=== PATIENT | male | born 1980 | race African-American/Black ===

== ENCOUNTER 2017-01-04 08:42 | Emergency (ER) | payer OTHER ==
[~2017-01-04] VITALS: Ht 170.2 cm; Wt 140.0 kg
[2017-01-04 08:43] VITALS: BP 129/73; PULSE 84; RESP 16; TEMP 98.2; O2SAT 97
[2017-01-04] MEDS ORDERED: MOME17I EACH NARE (09:02)
[2017-01-04] MEDS ORDERED: BENZ100 PO (09:02)
[2017-01-04] MEDS ORDERED: IPRA0.06 EACH NARE (09:02)
[2017-01-04] MEDS ORDERED: AZIT500T2 PO (09:02)
--- NOTE | 2017-01-04 09:03 | PD ---
HPI Chief Complaint: Cold / Flu Symptoms Time Seen by Provider: 09:00 Travel History International Travel<30 days: No Contact w/Intl Traveler<30days: No Traveled to known affect area: No History of Present Illness HPI 36-year-old male presents to emergency Department with complaint of nasal congestion and cough 2 weeks. Denies ear pain, sore throat, shortness of breath, chest tightness, wheezing. Denies fevers. Reports chills at times. Cough is worse at night. It has vomiting, abdominal pain. Has been taking Mucinex for symptom management. Symptoms are mild in severity. No known aggravating factors. No known allergies. Has no other medical complaints. No other modifying factors or associated signs and symptoms. PFSH Social History Tobacco Use: No Allergies-Medications (Allergen,Severity, Reaction): Coded Allergies: No Known Allergies (Unverified , 01/04/17) Reported Meds & Prescriptions Reported Meds & Active Scripts Active Tessalon Perles (Benzonatate) 100 Mg Cap 100 Mg PO TID PRN 3 Days Nasonex Nasal [place] (Mometasone Furoate) 50 Mcg/Act Naspr 2 [place] EACH NARE DAILY PRN Ipratropium Nasal 0.06% [place] 1 [place] EACH NARE TID PRN Azithromycin 500 Mg Tab 500 Mg PO DAILY Review of Systems Except as stated in HPI: all other systems reviewed are Neg Physical Exam Narrative GENERAL: Well-nourished, well-developed lack male patient, in no acute distress ; afebrile, nontoxic-appearing SKIN: Warm and dry. No rash. HEAD: Atraumatic. Normocephalic. EYES: Pupils equal and round. No scleral icterus. No injection or drainage. ENT: Mucosa pink and moist. No erythema or exudates. No uvular edema. No uvular , palatal, or tonsillar deviation. Airway patent. EARS: Bilateral pinnae and external canals appear within normal limits. Bilateral tympanic membranes without erythema, dullness or perforation. NECK: Trachea midline. No lymphadenopathy. CARDIOVASCULAR: Regular rate and rhythm. No murmur appreciated. RESPIRATORY: No accessory muscle use. Clear to auscultation. Breath sounds equal bilaterally. No retractions or tachypnea. GASTROINTESTINAL: Obese. MUSCULOSKELETAL: No obvious deformities. No clubbing. No cyanosis. No edema. NEUROLOGICAL: Awake and alert. Oriented 3. No obvious cranial nerve deficits. Motor grossly within normal limits. Normal speech. Moves all extremities. 5/5 strength to all extremities. PSYCHIATRIC: Appropriate mood and affect; insight and judgment normal. Data Data Last Documented VS Vital Signs Date Time Temp Pulse Resp B/P (MAP) Pulse Ox O2 Delivery O2 Flow Rate FiO2 01/04/17 08:43 98.2 84 16 129/73 (91) 97 Orders Orders Ed Discharge Order (01/04/17 09:03) MDM Medical Decision Making Medical Screen Exam Complete: Yes Emergency Medical Condition: Yes Medical Record Reviewed: Yes Differential Diagnosis Upper respiratory infection, bronchitis, pneumonia, sinusitis Narrative Course 36-year-old male with cough and cold symptoms 2 weeks. Patient is afebrile and nontoxic-appearing. Physical exam is unremarkable. I will treat the patient with antibiotics secondary to length of illness. Azithromycin, Nasonex nasal spray, ipratropium nasal spray, Tessalon Perles prescribed for home. Instructed patient to follow up with primary care provider. Patient verbalizes understanding and agreement with treatment plan. Patient is medically cleared and stable for discharge. Discussed reasons to return to the emergency department. Patient agrees with treatment plan. The patients vital signs are stable and the patient is stable for outpatient follow-up and treatment. Patient discharged home, stable and in no acute distress. Diagnosis Primary Impression: URI (upper respiratory infection) Qualified Codes: J06.9 - Acute upper respiratory infection, unspecified Referrals: [facility] Primary Care Physician Patient Instructions: General Instructions, Upper Respiratory Infection (ED) Additional Instructions: Antibiotics as prescribed and complete full course Ibuprofen or Tylenol as instructed and as needed for fever/pain [id number] cough and cold medications as directed and as needed for symptom management Get plenty of sleep/rest Drink plenty of fluids to prevent dehydration; popsicles and Gatorade Use an air humidifier/turn off ceiling fans Follow-up with primary care provider Return immediately to the emergency department with worsening of symptoms Med/Other Pt SpecificInfo: Prescription(s) given Scripts Benzonatate (Tessalon Perles) 100 Mg Cap 100 MG PO TID Y for COUGH for 3 Days, CAP 0 Refills Prov: Danni Mccarthy [employer] 01/04/17 Mometasone Nasal [place] (Nasonex Nasal [place]) 50 Mcg/Act Naspr 2 SPRAY EACH NARE DAILY Y for NASAL CONGESTION, #1 BOTTLE 0 Refills Prov: Danni MccarthyP 01/04/17 Ipratropium Nasal (Ipratropium Nasal) 0.06% [place] 1 SPRAY EACH NARE TID Y for NASAL CONGESTION, #1 BOTTLE 0 Refills Prov: Danni MccarthyP 01/04/17 Azithromycin (Azithromycin) 500 Mg Tab 500 MG PO DAILY for Infection, #5 TAB 0 Refills Prov: Danni Mccarthy 01/04/17 Disposition: 01 DISCHARGE HOME Condition: Stable Danni Mccarthy Jan 04, 2017 09:03
== END 2017-01-04 09:30 | disposition home or self-care (01) ==
LOC: NEPD 08:42
DX: J06.9 Acute upper respiratory infection, unspecified (principal); R11.10 Vomiting, unspecified
CPT/HCPCS: 99284